=== PATIENT | female | born 1950 | race Two or more races ===

== ENCOUNTER → 2024-02-03 | Outpatient (CLI) | payer MEDICARE, BC, SELFPAY ==
[2024-02-03 09:42] LABS: Basophils # (Auto) 0.1 Thou/mm3 (0.0-0.2); Basophils % (Auto) 1 % (0-2.5); Eosinophils # (Auto) 0.2 Thou/mm3 (0.0-0.5); Eosinophils % (Auto) 3 % (0-10); Hematocrit 41.1 % (36.0-46.0); Hemoglobin 13.4 g/dL (12.0-16.0); Immature Granulocytes % (Auto) 0 % (0-0); Immature Granulocytes Auto 0.02 Thou/mm3 (0.00-0.00); Lymphocytes # (Auto) 1.7 Thou/mm3 (1.0-4.8); Lymphocytes % (Auto) 22 % (10-50); Mean Corpuscular HGB Conc 32.6 g/dl (31.0-37.0); Mean Corpuscular Hemoglobin 28.8 pg (25.0-35.0); Mean Corpuscular Volume 88 fL (80-100); Monocytes # (Auto) 0.7 Thou/mm3 (0.0-0.8); Monocytes % (Auto) 9 % (0-12); Neutrophils % (Auto) 65 % (37-80); Nucleated Red Blood Cell % 0 /100 WBC (0); Platelet Count 198 Thou/mm3 (140-440); RDW Standard Deviation 46.7 fL (36.4-46.3); Red Blood Count 4.66 Miln/mm3 (4.00-5.20); White Blood Count 7.7 Thou/mm3 (3.6-11.0)
[2024-02-03 10:02] LABS: Sed Rate (ESR) 67 mm/hr (0-30)
[2024-02-03 10:05] LABS: Alanine Aminotransferase 46 U/L (10-49); Albumin, Serum 4.5 gm/dL (3.4-4.8); Albumin/Globulin Ratio 1.7 (1.2-2.2); Alkaline Phosphatase 79 U/L (46-116); Anion Gap 8 (7-16); Aspartate Amino Transferase 53 U/L (0-34); BUN/Creatinine Ratio 14 Ratio (12-20); Bilirubin,Total 0.6 mg/dL (0.3-1.2); Blood Urea Nitrogen 13 mg/dL (9-23); Calcium 9.5 mg/dL (8.3-10.6); Calcium (Corrected) 9.5 mg/dL (8.5-10.1); Cardiac Risk Estimate 3.8 RATIO (3.7-5.6); Chloride 106 mMol/L (98-107); Cholesterol 205 mg/dL (132-200); Creatinine (Component) 0.9 mg/dL (0.6-1.3); Globulin 2.7 gm/dL (2.3-3.5); Glucose 113 mg/dL (74-106); HDL Cholesterol 54 mg/dL (40-60); LDL Cholesterol,Calculated 129 mg/dL (0-130); Osmolality,Calculated 276 (275-295); Potassium 4.4 mMol/L (3.4-5.1); Sodium 138 mMol/L (136-145); Total Protein 7.2 gm/dL (5.7-8.2); Triglycerides 109 mg/dL (30-150); eGFR > 60 See Note
[2024-02-03 10:17] LABS: Glucose Estimated Average 114 mg/dL (80-131); Hemoglobin A1C 5.6 % Hgb (4.8-6.0)
[2024-02-03 16:46] LABS: RA Screen Negative (Negative)
[2024-02-10 06:58] LABS: ANA Pattern NUCLEAR, HOMOGENEOUS; ANA Screen, IFA POSITIVE (NEGATIVE)
== END | disposition home or self-care (01) ==
LOC: COPL 09:04
PROVIDERS: PCP Family Medicine; Referring Provider Family Medicine; Visit Provider Family Medicine
DX: I10 Essential (primary) hypertension (principal); M25.519 Pain in unspecified shoulder; R73.03 Prediabetes; R10.10 Upper abdominal pain, unspecified
CPT/HCPCS: 36415; 80053; 80061; 83036; 85025; 85652; 86038; 86039; 86430

== ENCOUNTER → 2024-02-12 | Outpatient (CLI) | payer MEDICARE, BC, SELFPAY ==
[2024-02-12 10:50] LABS: C-Reactive Protein 0.4 mg/dL (0.0-0.9); Thyroid Stimulating Hormone 1.38 uIU/mL (0.55-4.78)
[2024-02-12 10:59] LABS: Sed Rate (ESR) 16 mm/hr (0-30)
[2024-02-12 19:34] LABS: RA Screen Negative (Negative)
[2024-02-19 07:03] LABS: ANA Pattern NUCLEAR, HOMOGENEOUS; ANA Pattern NUCLEAR, SPECKLED; ANA Screen, IFA POSITIVE (NEGATIVE); Complement Component C3* 159 mg/dL (83-193); Complement Component C4c* 34 mg/dL (15-57); DNA (ds) Antibody* 5 IU/mL; Scl-70 Antibody* <1.0 NEG AI (<1.0 NEGATIVE)
== END | disposition home or self-care (01) ==
PROVIDERS: PCP Family Medicine; Referring Provider Family Medicine; Visit Provider Family Medicine
DX: R76.0 Raised antibody titer (principal); M25.50 Pain in unspecified joint
CPT/HCPCS: 36415; 84443; 85652; 86038; 86039; 86140; 86160; 86225; 86235; 86430

== ENCOUNTER → 2024-02-20 | Outpatient (CLI) | payer MEDICARE, BC, SELFPAY ==
--- NOTE | 2024-02-20 09:10 | XR_ITS ---
Examination: Shoulder,right, 3 views Technique: Shoulder AP internal rotation, AP external rotation, Y view shoulder, 3 views Exam date and time :February 20, 2024 0915 hours INDICATIONS: Right shoulder pain beginning 3 months ago. FINDINGS: Moderate osteopenia Moderate narrowing glenohumeral joint No fracture or shoulder dislocation IMPRESSION: Moderate narrowing glenohumeral joint
--- NOTE | 2024-02-20 09:10 | XR_ITS ---
Examination: Hand, right 3 views Technique: Hand AP, oblique, lateral 3 views Date and time of exam: November 21, 2023 0915 hours INDICATIONS: Chronic hand pain 25 years FINDINGS: Moderate juxta-articular bone demineralization Significant osteoarthritis first carpometacarpal joint No fracture No erosive arthritis Milder osteoarthritis interphalangeal joints IMPRESSION: Osteoarthritis as above, most severe first carpometacarpal joint
[2024-02-20 10:56] LABS: Urea Breath Test Negative (Negative)
== END | disposition home or self-care (01) ==
LOC: CDIM 08:49 → COPL 09:38
PROVIDERS: PCP Family Medicine; Referring Provider Family Medicine; Visit Provider Radiology Diagnostic Radiology
DX: M19.041 Primary osteoarthritis, right hand (principal); M25.811 Other specified joint disorders, right shoulder; I10 Essential (primary) hypertension; M25.519 Pain in unspecified shoulder; R73.03 Prediabetes; R10.10 Upper abdominal pain, unspecified
CPT/HCPCS: 73030; 73130; 83013; 83014

== ENCOUNTER → 2024-04-17 | Outpatient (CLI) | payer MEDICARE, BC, SELFPAY ==
[2024-04-17 09:25] LABS: Misc Send Out* See Sep Rpt
[2024-04-17 10:40] LABS: Basophils # (Auto) 0.1 Thou/mm3 (0.0-0.2); Basophils % (Auto) 1 % (0-2.5); Eosinophils % (Auto) 0 % (0-10); Hematocrit 43.8 % (36.0-46.0); Hemoglobin 14.1 g/dL (12.0-16.0); Immature Granulocytes % (Auto) 1 % (0-0); Immature Granulocytes Auto 0.04 Thou/mm3 (0.00-0.00); Lymphocytes # (Auto) 2.6 Thou/mm3 (1.0-4.8); Lymphocytes % (Auto) 31 % (10-50); Mean Corpuscular HGB Conc 32.2 g/dl (31.0-37.0); Mean Corpuscular Hemoglobin 29.1 pg (25.0-35.0); Mean Corpuscular Volume 91 fL (80-100); Monocytes # (Auto) 0.7 Thou/mm3 (0.0-0.8); Monocytes % (Auto) 8 % (0-12); Neutrophils % (Auto) 60 % (37-80); Nucleated Red Blood Cell % 0 /100 WBC (0); Platelet Count 257 Thou/mm3 (140-440); RDW Standard Deviation 47.9 fL (36.4-46.3); Red Blood Count 4.84 Miln/mm3 (4.00-5.20); White Blood Count 8.4 Thou/mm3 (3.6-11.0)
[2024-04-17 10:50] LABS: Alanine Aminotransferase 25 U/L (10-49); Albumin, Serum 4.4 gm/dL (3.4-4.8); Albumin/Globulin Ratio 1.6 (1.2-2.2); Alkaline Phosphatase 74 U/L (46-116); Anion Gap 8 (7-16); Aspartate Amino Transferase 26 U/L (0-34); BUN/Creatinine Ratio 15 Ratio (12-20); Bilirubin,Total 0.4 mg/dL (0.3-1.2); Blood Urea Nitrogen 15 mg/dL (9-23); C-Reactive Protein 0.8 mg/dL (0.0-0.9); Calcium 9.5 mg/dL (8.3-10.6); Calcium (Corrected) 9.5 mg/dL (8.5-10.1); Carbon Dioxide 27.1 mMol/L (20.0-31.0); Chloride 105 mMol/L (98-107); Globulin 2.8 gm/dL (2.3-3.5); Glucose 126 mg/dL (74-106); Osmolality,Calculated 282 (275-295); Potassium 4.3 mMol/L (3.4-5.1); Sodium 140 mMol/L (136-145); Total Protein 7.2 gm/dL (5.7-8.2); eGFR 59 See Note
[2024-04-17 11:19] LABS: Sed Rate (ESR) 21 mm/hr (0-30)
[2024-04-24 06:44] LABS: Complement Component C3* 174 mg/dL (83-193); Complement Component C4c* 36 mg/dL (15-57); DNA (ds) Antibody* 3 IU/mL
== END | disposition home or self-care (01) ==
PROVIDERS: PCP Family Medicine; Referring Provider Internal Medicine Rheumatology; Visit Provider Internal Medicine Rheumatology
DX: M15.9 Polyosteoarthritis, unspecified (principal); R76.0 Raised antibody titer
CPT/HCPCS: 36415; 80053; 83520; 85025; 85652; 86140; 86160; 86225

== ENCOUNTER → 2024-05-16 | Outpatient (CLI) | payer MEDICARE, BC, SELFPAY ==
--- NOTE | 2024-05-16 13:30 | XR_ITS ---
MRI shoulder, right, without contrast. Date and time: May 16, 2024 1341 hrs. Indications: Right shoulder pain weakness joint clicking Technique: Multiple axial, sagittal and coronal sections of the shoulder have been obtained. Siemens high-resolution 1.5 [employer] MRI scanner is utilized. Axial fat-suppressed sections, TR 2350, TE 18 T2-weighted coronal fat-saturated images, TR 3500, TE 7100 T1-weighted coronal images, TR 500, TE 15 T2-weighted sagittal fat-saturated images, TR 3500, TE 57 T1-weighted sagittal sections, TR 504, TE 13. Findings: Suspicious for 10 mm full-thickness rotator cuff tear Subscapularis insertion is intact. Subscapularis bursa is not seen. Long head of the biceps is in the bicipital groove. No definite tear of the biceps superior labral anchor is seen. Retraction of the musculotendinous junction of the rotator cuff is mild. Tendinosis pattern is mild. Distance between the acromium and humeral head is 5 mm Atrophy of the supraspinatus muscle is mild . Atrophy of the infraspinatus muscle is mild. Sagittal sections demonstrate a horizontal acromion. Acromioclavicular joint demonstrates significant osteoarthritis. Osacromiale is not identified. Labral margins appear intact. Bony glenoid fossa on the sagittal sections does not demonstrate osseous defect. Occult fracture or area of avascular necrosis is not seen. Acromioclavicular joint separation is not visible. Defect in the posterolateral margin of the humeral head is not seen Impression: Recommend this patient return for MR arthrography and post intra-articular contrast images to confirm rotator cuff tear
== END | disposition home or self-care (01) ==
LOC: SMRI 13:03
PROVIDERS: Referring Provider Family Medicine; Visit Provider Family Medicine
DX: M75.101 Unspecified rotator cuff tear or rupture of right shoulder, not specified as traumatic (principal)
CPT/HCPCS: 73221

== ENCOUNTER → 2024-06-09 | Outpatient (CLI) | payer MEDICARE, BC, SELFPAY ==
--- NOTE | 2024-06-09 | XR_ITS ---
Examination: PA lateral chest 2 views TECHNIQUE: Upright PA lateral chest 2 views Exam date and time: June 09, 2024 1152 hours Comparison March 29, 2023 INDICATIONS: Coughing shortness of breath 5 days FINDINGS: Right apical scarring again noted Normal heart size No interval pneumonia or pulmonary edema IMPRESSION: No interval pneumonia or pulmonary edema
== END | disposition home or self-care (01) ==
LOC: CDIM 11:29
PROVIDERS: PCP Family Medicine; Referring Provider Internal Medicine; Visit Provider Internal Medicine
DX: R06.02 Shortness of breath (principal); R05.9 Cough, unspecified
CPT/HCPCS: 71046

== ENCOUNTER → 2024-09-14 | Outpatient (CLI) | payer MEDICARE, BC, SELFPAY ==
--- NOTE | 2024-09-14 09:51 | XR_ITS ---
Examination: Bilateral hips, AP pelvis, 5 views Technique: AP, lateral views both hips, AP pelvis, 5 views Exam date and time: September 14, 2024 1004 hours INDICATIONS: Left hip pain 5 days. FINDINGS: Moderate osteopenia. Mild bilateral hip osteoarthritis No hip fracture or dislocation Bones of the pelvis intact IMPRESSION: Mild bilateral hip osteoarthritis
== END | disposition home or self-care (01) ==
PROVIDERS: PCP Nurse Practitioner Family; Referring Provider Nurse Practitioner Family; Visit Provider Nurse Practitioner Family
DX: M16.0 Bilateral primary osteoarthritis of hip (principal)
CPT/HCPCS: 73523

== ENCOUNTER → 2024-09-23 | Outpatient (CLI) | payer MEDICARE, BC, SELFPAY ==
[2024-09-23 08:49] LABS: Glucose Estimated Average 123 mg/dL (80-131); Hemoglobin A1C 5.9 % Hgb (4.8-6.0)
[2024-09-23 08:56] LABS: Alanine Aminotransferase 34 U/L (10-49); Albumin, Serum 4.4 gm/dL (3.4-4.8); Albumin/Globulin Ratio 1.5 (1.2-2.2); Alkaline Phosphatase 74 U/L (46-116); Anion Gap 9 (7-16); Aspartate Amino Transferase 41 U/L (0-34); BUN/Creatinine Ratio 13 Ratio (12-20); Bilirubin,Total 0.6 mg/dL (0.3-1.2); Blood Urea Nitrogen 13 mg/dL (9-23); Calcium 9.6 mg/dL (8.3-10.6); Calcium (Corrected) 9.6 mg/dL (8.5-10.1); Carbon Dioxide 27.4 mMol/L (20.0-31.0); Cardiac Risk Estimate 3.9 RATIO (3.7-5.6); Chloride 106 mMol/L (98-107); Cholesterol 209 mg/dL (132-200); Creatinine (Component) 1.0 mg/dL (0.6-1.3); Globulin 3.0 gm/dL (2.3-3.5); Glucose 127 mg/dL (74-106); HDL Cholesterol 54 mg/dL (40-60); LDL Cholesterol,Calculated 132 mg/dL (0-130); Osmolality,Calculated 285 (275-295); Potassium 4.8 mMol/L (3.4-5.1); Sodium 142 mMol/L (136-145); Thyroid Stimulating Hormone 3.81 uIU/mL (0.55-4.78); Total Protein 7.4 gm/dL (5.7-8.2); Triglycerides 117 mg/dL (30-150); eGFR 59 See Note
[2024-09-23 09:01] LABS: T4 (Thyroxine) 9.8 mcg/dL (4.5-10.9)
== END | disposition home or self-care (01) ==
LOC: COPL 07:25
PROVIDERS: PCP Internal Medicine; Referring Provider Nurse Practitioner Family; Visit Provider Nurse Practitioner Family
DX: I10 Essential (primary) hypertension (principal)
CPT/HCPCS: 36415; 80053; 80061; 83036; 84436; 84443

== ENCOUNTER → 2024-09-24 | Outpatient (CLI) | payer MEDICARE, BC, SELFPAY ==
[2024-09-28 07:46] LABS: Fecal Globin Result NOT DETECTED (NOT DETECTED)
== END | disposition home or self-care (01) ==
LOC: SLDO 09:28
PROVIDERS: PCP Nurse Practitioner Family; Referring Provider Nurse Practitioner Family; Visit Provider Nurse Practitioner Family
DX: Z12.11 Encounter for screening for malignant neoplasm of colon (principal)
CPT/HCPCS: 82274; G0328

== ENCOUNTER → 2024-09-25 | Outpatient (CLI) | payer MEDICARE, BC, SELFPAY ==
[2024-09-25 14:43] LABS: Collection Type, Urine Clean Catch
[2024-09-25 16:34] LABS: Bilirubin,Urine Negative (Negative); Blood,Urine Negative (Negative); Clarity,Urine Clear (Clear/Hazy); Color,Urine Lt-Yellow (Lt Yel-Yel); Glucose, Urine Negative (Negative); Ketones,Urine Negative (Negative); Leukocyte Esterase,Urine Positive (Negative); Nitrite,Urine Negative (Negative); PH,Urine 6.0 (5.0-7.0); Protein,Urine Negative (Neg - Trace); RBC,Urine 1 /hpf (0-3); Specific Gravity,Urine 1.015 (1.001-1.035); Squamous Epithelial Cell,Urine 2 /hpf (0-5); Urobilinogen,Urine Negative mg/dL (0.0-1.0); WBC,Urine 3 /hpf (0-5)
== END | disposition home or self-care (01) ==
LOC: SLDO 14:34
PROVIDERS: PCP Nurse Practitioner Family; Referring Provider Nurse Practitioner Family; Visit Provider Nurse Practitioner Family
DX: N39.0 Urinary tract infection, site not specified (principal)
CPT/HCPCS: 81001; 87086

== ENCOUNTER → 2024-11-12 | Outpatient (CLI) | payer MEDICARE, BC, SELFPAY ==
--- NOTE | 2024-11-12 08:25 | XR_ITS ---
Examination: Ankle Bilateral, 6 views Technique: AP oblique lateral each ankle total 6 views Date and time of exam: November 12, 2024 0837 hours INDICATIONS: Bilateral ankle pain beginning 2 months ago. FINDINGS: Prominent osteopenia. No bilateral ankle fracture or dislocation Bilateral mild osteoarthritis tibiotalar joints Mild ossification in the Achilles insertion bilaterally IMPRESSION: Mild bilateral osteoarthritis tibiotalar joints
--- NOTE | 2024-11-12 08:25 | XR_ITS ---
Examination: Bilateral AP knees standing single view TECHNIQUE: Standing bilateral AP knees single view Date and time: November 12, 2024 0843 hours INDICATIONS: Bilateral knee pain beginning 2 months ago FINDINGS: Moderate osteopenia. Total right knee arthroplasty. Satisfactory alignment. No loosening of the prosthetic components Mild to moderate narrowing medial joint space left knee No left knee fracture IMPRESSION: Total right knee arthroplasty with satisfactory alignment. Mild to moderate narrowing medial joint space left knee
--- NOTE | 2024-11-12 08:25 | XR_ITS ---
Examination: Thoracic spine 3 views Technique one AP lateral coned lateral upper dorsal spine 3 views Date and time: November 12, 2024 0838 hours INDICATIONS: Upper back pain beginning 2 months ago. FINDINGS: Prominent osteopenia. No acute thoracic fracture. Mild diffuse thoracic degenerative disc disease Extensive right apical scarring noted on the chest film June 09, 2024 IMPRESSION: Mild diffuse thoracic degenerative disc disease
== END | disposition home or self-care (01) ==
PROVIDERS: PCP Nurse Practitioner Family; Referring Provider Nurse Practitioner Family; Visit Provider Nurse Practitioner Family
DX: M19.072 Primary osteoarthritis, left ankle and foot (principal); M19.071 Primary osteoarthritis, right ankle and foot; M25.862 Other specified joint disorders, left knee; M25.561 Pain in right knee; Z96.651 Presence of right artificial knee joint; M51.34 Other intervertebral disc degeneration, thoracic region
CPT/HCPCS: 72072; 73565; 73610

== ENCOUNTER 2024-12-07 08:30 | Outpatient (RCR) | payer MEDICARE, BC, SELFPAY ==
--- NOTE | 2024-11-24 09:40 | PT.OIERPT ---
PT OP Initial Eval Patient Information Outpatient Physical Therapy Treatment Date: 11/24/24 Visit Reasons: Bilateral hip pain Medical Diagnosis: M16.0 Treatment Dx #1: B hip pain Treatment Dx #2: LBP Start of Care: 11/24/24 Date of Onset: 3 months ago Smoking Status Smoking Status: Never smoker Initial Assessment Subjective: Pt is 74 yr old tunisian speaking female who c/o L hip pain x3 months and points to the L glute posteriorly as site of pain. She says R hip pain is low today. Increased pain with standing up from a chair, getting OOB, and walking >20 mins she has to sit to rest. PLOF: Pt was ambulating community distances without L hip pain limitations. PMH: lumbar fusion L3-S1 2022, R TKA, R shoulder sx 07/03 Imaging: Hip Xray Mild bilateral hip osteoarthritis Pt goal: less pain of L hip Objective: L hip AROM: SLR: 35 deg with glute pain Abduction: 30 deg Flexion: 90 deg with glute pain TTP: moderate of glute max and lateral GT region Trunk AROM: FB: 20% of full with L glute pain Extension: 20% of full with L glute pain Assessment: Pt presents with pain in L glute and lateral hip with trunk movements and hip movements. This pain could be referred from the L/S since she isn't having inguinal pain and may be consistent with OA. Pt may benefit from skilled therapy and has fair rehab potential to meet goals. 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 Ind with HEP 2. Pt will ambulate x30 mins with <=3/10 pain 3. Decreased TTP of L glute max and lateral GT region from mod to min. 4. Transfer sit to stand x5 with <=3/10 pain Treatment Plan 60 day POC ? 1. Manual therapy ? 2. Therex ? 3. Modalities as indicated, moist heat, ice, estim Frequency and Duration: 1x a week for 6 weeks Certification Dates: 11/24/24 to 01/23/25 Procedure Charges OP PT Eval Mod Complex 30 minutes: Yes
--- NOTE | 2024-12-01 10:40 | PTNOTE_ITS ---
PT Outpatient Daily Note OP Daily Note Outpatient Physical Therapy Treatment Date: 12/01/24 Visit Reasons: Bilateral hip pain Subjective: Pt states she is not experiencing pain; explain pain increases with prolonged standing and walking. Objective: See F/S for therex performed Assessment: No pain with exercises; appropriate fatigue. Minimal vc's required to avoid t runk lean with 3-way hip exercise; pt complied. Demo'd increased HS tightness with HS stretch; minimal pain which subsided with cue to remain in pain free ROM. Plan: Continue with POC Length of Time (minutes) of Treatment: 30 Minutes Procedure Charges Therapeutic Exercise 30 minutes: Yes
--- NOTE | 2024-12-07 10:49 | PTNOTE_ITS ---
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 Objective: See F/S for therex performed Assessment: Improved mechanics with therex, min to none corrective cues required to improve posture and avoid trunk lean. No increase in pain with therex. Advised to continue with LE stretches at home. Plan: Continue with POC Length of Time (minutes) of Treatment: 30 Minutes Procedure Charges Therapeutic Exercise 30 minutes: Yes
== END 2024-12-08 23:59 | disposition home or self-care (01) ==
LOC: CPTX 08:30
PROVIDERS: PCP Nurse Practitioner Family; Referring Provider Nurse Practitioner Family; Visit Provider Nurse Practitioner Family
DX: M25.552 Pain in left hip (principal); M25.551 Pain in right hip; M54.50 Low back pain, unspecified; M16.0 Bilateral primary osteoarthritis of hip
CPT/HCPCS: 97110; 97162

== ENCOUNTER → 2024-12-18 | Outpatient (CLI) | payer MEDICARE, BC, SELFPAY ==
[2024-12-18 09:01] LABS: Glucose Estimated Average 126 mg/dL (80-131); Hemoglobin A1C 6.0 % Hgb (4.8-6.0)
[2024-12-18 09:04] LABS: Alanine Aminotransferase 27 U/L (10-49); Albumin, Serum 4.6 gm/dL (3.4-4.8); Albumin/Globulin Ratio 1.5 (1.2-2.2); Alkaline Phosphatase 74 U/L (46-116); Anion Gap 9 (7-16); Aspartate Amino Transferase 28 U/L (0-34); BUN/Creatinine Ratio 12 Ratio (12-20); Bilirubin,Total 0.4 mg/dL (0.3-1.2); Blood Urea Nitrogen 12 mg/dL (9-23); Calcium 9.9 mg/dL (8.3-10.6); Calcium (Corrected) 9.9 mg/dL (8.5-10.1); Carbon Dioxide 28.7 mMol/L (20.0-31.0); Cardiac Risk Estimate 3.7 RATIO (3.7-5.6); Chloride 107 mMol/L (98-107); Cholesterol 223 mg/dL (132-200); Creatinine (Component) 1.0 mg/dL (0.6-1.3); Globulin 3.0 gm/dL (2.3-3.5); Glucose 104 mg/dL (74-106); HDL Cholesterol 61 mg/dL (40-60); LDL Cholesterol,Calculated 138 mg/dL (0-130); Osmolality,Calculated 288 (275-295); Potassium 5.2 mMol/L (3.4-5.1); Sodium 145 mMol/L (136-145); Total Protein 7.6 gm/dL (5.7-8.2); Triglycerides 122 mg/dL (30-150); eGFR 59 See Note
== END | disposition home or self-care (01) ==
LOC: COPL 07:47
PROVIDERS: PCP Nurse Practitioner Family; Referring Provider Nurse Practitioner Family; Visit Provider Nurse Practitioner Family
DX: E78.5 Hyperlipidemia, unspecified (principal); R73.03 Prediabetes; I10 Essential (primary) hypertension
CPT/HCPCS: 36415; 80053; 80061; 83036

== ENCOUNTER → 2024-12-24 | Outpatient (CLI) | payer MEDICARE, BC, SELFPAY ==
[2024-12-24 09:39] LABS: Basophils # (Auto) 0.1 Thou/mm3 (0.0-0.2); Basophils % (Auto) 1 % (0-2.5); Eosinophils # (Auto) 0.1 Thou/mm3 (0.0-0.5); Eosinophils % (Auto) 1 % (0-10); Hematocrit 43.9 % (36.0-46.0); Hemoglobin 14.5 g/dL (12.0-16.0); Immature Granulocytes Auto 0.03 Thou/mm3 (0.00-0.00); Lymphocytes # (Auto) 3.0 Thou/mm3 (1.0-4.8); Lymphocytes % (Auto) 31 % (10-50); Mean Corpuscular HGB Conc 33.0 g/dl (31.0-37.0); Mean Corpuscular Hemoglobin 29.3 pg (25.0-35.0); Mean Corpuscular Volume 89 fL (80-100); Monocytes # (Auto) 0.8 Thou/mm3 (0.0-0.8); Monocytes % (Auto) 9 % (0-12); Neutrophils # (Auto) 5.6 Thou/mm3 (1.8-7.7); Neutrophils % (Auto) 58 % (37-80); Nucleated Red Blood Cell # 0.00 Thou/mm3 (0.00-0.00); Nucleated Red Blood Cell % 0 /100 WBC (0); Platelet Count 218 Thou/mm3 (140-440); RDW Standard Deviation 46.4 fL (36.4-46.3); Red Blood Count 4.95 Miln/mm3 (4.00-5.20); White Blood Count 9.7 Thou/mm3 (3.6-11.0)
[2024-12-24 12:44] LABS: Calcium 9.5 mg/dL (8.3-10.6); Magnesium 2.1 mg/dL (1.6-2.6)
== END | disposition home or self-care (01) ==
PROVIDERS: PCP Nurse Practitioner Family; Referring Provider Specialist; Visit Provider Nurse Practitioner Family
DX: Z08 Encounter for follow-up examination after completed treatment for malignant neoplasm (principal); M79.18 Myalgia, other site; R25.2 Cramp and spasm
CPT/HCPCS: 36415; 82310; 83735; 85025

== ENCOUNTER 2024-12-28 08:00 | Outpatient (RCR) | payer MEDICARE, BC, SELFPAY ==
--- NOTE | 2024-12-14 10:45 | PT.ODAYNRPT ---
PT Outpatient Daily Note OP Daily Note Outpatient Physical Therapy Treatment Date: 12/14/24 Visit Reasons: BILATERAL HIP PAIN Subjective: Less L hip pain since starting therapy and she points to the left lower quadrant as site of pain Objective: See F/S for therex Assessment: Good response to therex to reduce pain Plan: Continue per POC Length of Time (minutes) of Treatment: 30 Minutes Procedure Charges Therapeutic Exercise 30 minutes: Yes
--- NOTE | 2024-12-21 09:04 | PT.ODAYNRPT ---
PT Outpatient Daily Note OP Daily Note Outpatient Physical Therapy Treatment Date: 12/21/24 Visit Reasons: BILATERAL HIP PAIN Subjective: Less L hip pain since starting therapy and she points to the left lower quadrant as site of pain Objective: See F/S for therex Assessment: Good response to therex to reduce pain Plan: Continue per POC Length of Time (minutes) of Treatment: 30 Minutes Procedure Charges Therapeutic Exercise 30 minutes: Yes
--- NOTE | 2024-12-28 13:21 | PT.ODS1RPT ---
PT OP Progress/Discharge Note Date of Service: 12/28/24 Progress Note/DC Note Progress Note/Discharge Note: DC Note Patient Information Visit Reasons: BILATERAL HIP PAIN Service Continue Service or Discharge: Discharge Discharge Date: 12/28/24 Status Subjective: Less L hip pain since starting therapy and she is walking further and is ready to be done with therapy. She can ambulate around the store to grocery shop with min L hip pain. Objective: See F/S for therex L hip AROM; SLR: 45 deg Abduction: 45 deg TTP: min to none of L glute max and lateral GT region Assessment: Pt has attended the eval and 6 Rx sessions with good response to therex to reduce pain. She has met the goals of ambulating x30' and transfer from sit to stand x5 with <=3/10 pain and she is independent with HEP. Plan: D/C with HEP Procedure Charges Therapeutic Exercise 30 minutes: Yes
== END 2025-01-08 23:59 | disposition home or self-care (01) ==
LOC: CPTX 08:00
PROVIDERS: PCP Nurse Practitioner Family; Referring Provider Nurse Practitioner Family; Visit Provider Nurse Practitioner Family
DX: M25.552 Pain in left hip (principal); M25.551 Pain in right hip; M54.50 Low back pain, unspecified; M16.0 Bilateral primary osteoarthritis of hip
CPT/HCPCS: 97110